=== PATIENT | female | born 1935 | race Caucasian/White ===

== ENCOUNTER 2019-11-07 18:45 | Inpatient (IN) | payer OTHER, SELFPAY ==
[~2019-11-07] VITALS: Ht 157.5 cm; Wt 67.1 kg
[2019-11-07 18:45] VITALS: BP_SYST 177
[2019-11-07] MEDS ORDERED: ACETAMINOPHEN 500 MG TABLET PO ONE (19:00)
[2019-11-07] MEDS ORDERED: hydrALAZINE HCL 20 MG/ML VIAL IVP ONE (19:00)
[2019-11-07] MEDS ORDERED: CLOP75TA32 PO (19:28)
[2019-11-07] MEDS ORDERED: DULO60CA41 PO (19:28)
[2019-11-07] MEDS ORDERED: METO-442 PO (19:28)
[2019-11-07] MEDS ORDERED: TRAZ-219 PO (19:28)
[2019-11-07] MEDS ORDERED: CAT.1 PO (19:28)
[2019-11-07] MEDS ORDERED: POTA20PA30 PO (19:28)
[2019-11-07] MEDS ORDERED: MULT-1100 PO (19:28)
[2019-11-07] MEDS ORDERED: INSU200I SQ (19:28)
[2019-11-07] MEDS ORDERED: HYDR-4038 PO (19:28)
[2019-11-07] MEDS ORDERED: SENN-278 PO (19:28)
[2019-11-07] MEDS ORDERED: LORA-258 PO (19:28)
[2019-11-07] MEDS ORDERED: METO-290 PO (19:28)
[2019-11-07] MEDS ORDERED: ASPI-1153 PO (19:28)
[2019-11-07] MEDS ORDERED: LIP10 PO (19:28)
[2019-11-07] MEDS ORDERED: GABA-531 PO (19:28)
[2019-11-07] MEDS ORDERED: MAGN200T9 PO (19:28)
[2019-11-07] MEDS ORDERED: AMLO5TAB4 PO (19:28)
[2019-11-07] MEDS ORDERED: OMEP20CA11 PO (19:28)
[2019-11-07] MEDS ORDERED: LIDO700A30 TP (19:28)
[2019-11-07 19:54] LABS: BASOPHILS # (AUTO) 0.1 K/uL (0.0-0.2); BASOPHILS % (AUTO) 0.2 % (0.0-2.0); EOSINOPHILS # (AUTO) 0.1 K/uL (0.0-0.4); EOSINOPHILS % (AUTO) 0.6 % (0.0-4.0); HEMATOCRIT 44.5 % (36-48); HEMOGLOBIN 14.9 g/dL (12.0-16.0); LYMPHOCYTES # (AUTO) 1.2 K/uL (1.0-5.5); LYMPHOCYTES % (AUTO) 5.3 % (20.5-51.5); MEAN CORPUSCULAR HEMOGLOBIN 31 pg (27-31); MEAN CORPUSCULAR HGB CONC 33 % (32-36); MEAN CORPUSCULAR VOLUME 92 fL (79.0-98.0); MONOCYTES # (AUTO) 1.3 K/uL (0.0-1.0); MONOCYTES % (AUTO) 5.9 % (1.7-9.3); NEUTROPHILS # (AUTO) 19.4 K/uL (1.8-7.7); PLATELET COUNT (AUTO) 215 K/uL (130-430); RED BLOOD CELL COUNT(AUTO) 4.86 MIL/uL (4.2-6.2); RED CELL DISTRIBUTION WIDTH 13.3 % (9.0-15.0)
[2019-11-07] MEDS ORDERED: LEVOFLOXACIN 500 MG/D5W 100 ML IV ONE (20:00)
[2019-11-07] MEDS ORDERED: ACETAMINOPHEN 500 MG TABLET ONE (20:06)
[2019-11-07 20:10] LABS: ANION GAP 7 (5-15); CALCIUM 8.7 mg/dL (8.4-11.0); CHLORIDE 96 mmol/L (98-107); CREATININE 0.69 mg/dL (0.55-1.30); GLUCOSE 209 mg/dL (70-99); SODIUM SERUM 134 mmol/L (136-145); UREA NITROGEN, BLOOD 12 mg/dL (8-21)
[2019-11-07 20:15] LABS: ALANINE AMINOTRANSFERASE 34 U/L (12-78); ALBUMIN 2.9 g/dL (3.4-4.8); ASPARTATE AMINOTRANSFERASE 19 U/L (10-37); LIPASE 211 U/L (73-393); TOTAL BILIRUBIN 0.4 mg/dL (0.0-1.0)
[2019-11-07 21:09] LABS: BILIRUBIN,URINE NEGATIVE (NEGATIVE); BLOOD, URINE NEGATIVE (NEGATIVE); COLOR,URINE YELLOW (YELLOW); GLUCOSE,URINE 2+ (NEGATIVE); KETONES,URINE NEGATIVE (NEGATIVE); LEUKOCYTE ESTERASE ,URINE NEGATIVE (NEGATIVE); NITRITE, URINE NEGATIVE (NEGATIVE); PROTEIN URINE 2+ (NEGATIVE); UROBILINOGEN,URINE 0.2 (0.2-1.0)
[2019-11-07] MEDS ORDERED: ACETAMINOPHEN 650 MG SUPP.RECT RC PRN (21:15)
[2019-11-07] MEDS ORDERED: POTASSIUM CHLORIDE 40 MEQ, LIDOCAINE JECT 2% PF 100 MG 50 MG in NS 250 ML IV ONE (21:15)
[2019-11-07 21:21] LABS: CLARITY/URINE SLIGHTLY HAZY (CLEAR)
[2019-11-07] MEDS ORDERED: LORazepam 2 MG/ML VIAL IVP PRN (21:30)
[2019-11-07] MEDS ORDERED: ONDANSETRON HCL 4 MG/2 ML VIAL IVP PRN (21:30)
[2019-11-07] MEDS ORDERED: MORPHINE 2 MG/ML INJ. SYRINGE IVP PRN (21:30)
[2019-11-07 21:57] LABS: BACTERIA,URINE MODERATE /HPF (None Seen); RBC,URINE 0-3 /HPF (0-3)
[2019-11-07] MEDS ORDERED: LIDOCAINE JECT 2% PF 100 MG/5ML SYRINGE ONE (22:22)
[2019-11-07] MEDS ORDERED: KCL 40 mEq in 100 mL (PREMIX) 100 ML IV ONE (22:25)
[2019-11-07 23:14] VITALS: BP_SYST 138
[2019-11-07] MEDS: KCL 20 mEq in D5NS 1000 mL 1,000 ML IV SCH (23:54)
[2019-11-07] MEDS ORDERED: KCL 20 mEq in D5NS 1000 mL 1,000 ML IV ONE (23:54)
[2019-11-08] VITALS: BP_SYST 143
[2019-11-08] MEDS ORDERED: DEXTROSE 50% JECT 50 ML DISP.SYRIN IVP PRN
[2019-11-08] MEDS ORDERED: GLUCOSE 15 GM GEL (in 37.5 GM TUBE) PO PRN
[2019-11-08] MEDS: INSULIN LISPRO SLIDING SCALE 100 UNITS/ML VIAL (humaLOG) SUBCUT PRN ×3 (00:11→20:50)
[2019-11-08 06:44] LABS: BASOPHILS % (AUTO) 0.2 % (0.0-2.0); EOSINOPHILS # (AUTO) 0.1 K/uL (0.0-0.4); EOSINOPHILS % (AUTO) 0.4 % (0.0-4.0); HEMATOCRIT 39.5 % (36-48); HEMOGLOBIN 13.1 g/dL (12.0-16.0); LYMPHOCYTES # (AUTO) 1.5 K/uL (1.0-5.5); MEAN CORPUSCULAR HEMOGLOBIN 31 pg (27-31); MEAN CORPUSCULAR HGB CONC 33 % (32-36); MEAN CORPUSCULAR VOLUME 92 fL (79.0-98.0); MONOCYTES # (AUTO) 1.2 K/uL (0.0-1.0); NEUTROPHILS # (AUTO) 14.2 K/uL (1.8-7.7); NEUTROPHILS % (AUTO) 83.4 % (40.0-70.0); PLATELET COUNT (AUTO) 184 K/uL (130-430); RED CELL DISTRIBUTION WIDTH 13.1 % (9.0-15.0); WHITE BLOOD COUNT (AUTO) 17.1 K/uL (4.8-10.8)
[2019-11-08 07:20] LABS: ALANINE AMINOTRANSFERASE 30 U/L (12-78); ALBUMIN 2.2 g/dL (3.4-4.8); ANION GAP 4 (5-15); ASPARTATE AMINOTRANSFERASE 16 U/L (10-37); CALCIUM 8.5 mg/dL (8.4-11.0); CHLORIDE 102 mmol/L (98-107); CREATININE 0.43 mg/dL (0.55-1.30); GLUCOSE 146 mg/dL (70-99); POTASSIUM 3.3 mmol/L (3.5-5.1); SODIUM SERUM 138 mmol/L (136-145); THYROID STIMULATING HORMONE 1.75 uIu/mL (0.36-3.74); TOTAL BILIRUBIN 0.5 mg/dL (0.0-1.0); UREA NITROGEN, BLOOD 11 mg/dL (8-21)
[2019-11-08] MEDS ORDERED: FAMOTIDINE PF 20 MG/2 ML VIAL IVP SCH (09:00)
[2019-11-08 09:20] VITALS: BP_SYST 167
[2019-11-08] MEDS: KCL 20 mEq in D5NS 1000 mL 1,000 ML IV SCH (09:20)
[2019-11-08] MEDS ORDERED: POTASSIUM CHLORIDE 40 MEQ, LIDOCAINE JECT 2% PF 100 MG 50 MG in NS 250 ML IV ONE (10:00)
[2019-11-08 12:40] VITALS: BP_SYST 173
[2019-11-08 16:40] VITALS: BP_SYST 173
[2019-11-08] MEDS ORDERED: SENNOSIDES/DOCUSATE SODIUM 1 TAB TABLET(SENOKOT-S) PO PRN (17:00)
[2019-11-08] MEDS ORDERED: LORazepam 1 MG TABLET PO SCH (17:00)
[2019-11-08] MEDS: hydrALAZINE HCL 25 MG TABLET PO SCH ×2 (18:20→23:59)
[2019-11-08 20:00] VITALS: BP_SYST 163
[2019-11-08] MEDS: GABAPENTIN 300 MG CAPSULE PO SCH (20:34)
[2019-11-08] MEDS: METOCLOPRAMIDE HCL 10 MG TABLET PO SCH (20:34)
[2019-11-08] MEDS: METOPROLOL TARTRATE 50 MG TABLET PO SCH (20:36)
[2019-11-08] MEDS: MAGNESIUM OXIDE 400 MG TABLET PO SCH (20:36)
[2019-11-08] MEDS: traZODone HCL 50 MG TABLET (DESYREL) PO SCH (20:36)
[2019-11-08] MEDS: ATORVASTATIN 10 MG TABLET PO SCH (20:36)
[2019-11-08] MEDS: DULoxetine HCL 30 MG CAPSULE.DR (CYMBALTA) PO SCH (20:36)
[2019-11-08] MEDS: LEVOFLOXACIN 250 MG/D5W 50 ML IV SCH (20:49)
[2019-11-08 23:43] VITALS: BP_SYST 165
[2019-11-09] MEDS: KCL 20 mEq in D5NS 1000 mL 1,000 ML IV SCH ×3 (00:04→18:23)
[2019-11-09] MEDS: hydrALAZINE HCL 25 MG TABLET PO SCH ×4 (05:31→23:43)
[2019-11-09 06:51] LABS: BASOPHILS # (AUTO) 0.1 K/uL (0.0-0.2); BASOPHILS % (AUTO) 0.5 % (0.0-2.0); EOSINOPHILS # (AUTO) 0.1 K/uL (0.0-0.4); EOSINOPHILS % (AUTO) 0.8 % (0.0-4.0); HEMATOCRIT 39.4 % (36-48); HEMOGLOBIN 12.9 g/dL (12.0-16.0); LYMPHOCYTES # (AUTO) 1.5 K/uL (1.0-5.5); LYMPHOCYTES % (AUTO) 9.7 % (20.5-51.5); MEAN CORPUSCULAR HEMOGLOBIN 30 pg (27-31); MEAN CORPUSCULAR HGB CONC 33 % (32-36); MEAN CORPUSCULAR VOLUME 92 fL (79.0-98.0); MONOCYTES % (AUTO) 6.7 % (1.7-9.3); NEUTROPHILS # (AUTO) 12.6 K/uL (1.8-7.7); NEUTROPHILS % (AUTO) 82.3 % (40.0-70.0); PLATELET COUNT (AUTO) 218 K/uL (130-430); RED BLOOD CELL COUNT(AUTO) 4.26 MIL/uL (4.2-6.2); RED CELL DISTRIBUTION WIDTH 13.1 % (9.0-15.0); WHITE BLOOD COUNT (AUTO) 15.3 K/uL (4.8-10.8)
[2019-11-09 06:58] LABS: ALANINE AMINOTRANSFERASE 23 U/L (12-78); ALBUMIN 2.2 g/dL (3.4-4.8); ANION GAP 6 (5-15); ASPARTATE AMINOTRANSFERASE 14 U/L (10-37); CALCIUM 8.3 mg/dL (8.4-11.0); CHLORIDE 103 mmol/L (98-107); CREATININE 0.44 mg/dL (0.55-1.30); GLUCOSE 166 mg/dL (70-99); POTASSIUM 3.4 mmol/L (3.5-5.1); SODIUM SERUM 138 mmol/L (136-145); TOTAL BILIRUBIN 0.5 mg/dL (0.0-1.0); UREA NITROGEN, BLOOD 9 mg/dL (8-21)
[2019-11-09 08:00] VITALS: BP_SYST 171
[2019-11-09] MEDS: MULTIVITAMINS TAB 1 TABLET PO SCH (08:12)
[2019-11-09] MEDS: GABAPENTIN 300 MG CAPSULE PO SCH ×3 (08:12→21:08)
[2019-11-09] MEDS: CLOPIDOGREL BISULFATE 75 MG TABLET PO SCH (08:12)
[2019-11-09] MEDS: ASPIRIN 81 MG TABLET(ECOTRIN) PO SCH (08:13)
[2019-11-09] MEDS: MAGNESIUM OXIDE 400 MG TABLET PO SCH ×2 (08:13→21:10)
[2019-11-09] MEDS: PANTOPRAZOLE SODIUM 40 MG TAB PO SCH (08:13)
[2019-11-09] MEDS: METOCLOPRAMIDE HCL 10 MG TABLET PO SCH ×3 (08:13→21:08)
[2019-11-09] MEDS: METOPROLOL TARTRATE 50 MG TABLET PO SCH ×2 (08:13→21:09)
[2019-11-09] MEDS: amLODIPine BESYLATE 5 MG TABLET PO SCH (08:14)
[2019-11-09] MEDS: cloNIDine HCL 0.1 MG TABLET PO SCH ×2 (08:14→17:15)
[2019-11-09] MEDS ORDERED: POTASSIUM CHLORIDE 10 MEQ TAB.PRT.SR PO ONE (08:30)
[2019-11-09] MEDS: LIDOCAINE PATCH 5% 1 EA TP SCH (12:25)
[2019-11-09 12:37] VITALS: BP_SYST 145
[2019-11-09 16:30] VITALS: BP_SYST 150
[2019-11-09] MEDS: INSULIN LISPRO SLIDING SCALE 100 UNITS/ML VIAL (humaLOG) SUBCUT PRN ×2 (17:23→20:41)
[2019-11-09 20:00] VITALS: BP_SYST 164
[2019-11-09] MEDS: LEVOFLOXACIN 250 MG/D5W 50 ML IV SCH (21:05)
[2019-11-09] MEDS: DULoxetine HCL 30 MG CAPSULE.DR (CYMBALTA) PO SCH (21:06)
[2019-11-09] MEDS: ATORVASTATIN 10 MG TABLET PO SCH (21:09)
[2019-11-09] MEDS: traZODone HCL 50 MG TABLET (DESYREL) PO SCH (21:14)
[2019-11-09] MEDS: ENALAPRILAT DIHYDRATE 1.25 MG/ML VIAL IVP PRN (22:28)
[2019-11-10] VITALS: BP_SYST 173
[2019-11-10] MEDS: hydrALAZINE HCL 25 MG TABLET PO SCH ×4 (05:20→22:39)
[2019-11-10] MEDS: cloNIDine HCL 0.1 MG TABLET PO SCH (05:20)
[2019-11-10] MEDS: INSULIN LISPRO SLIDING SCALE 100 UNITS/ML VIAL (humaLOG) SUBCUT PRN ×2 (05:56→11:23)
[2019-11-10 07:34] LABS: ANION GAP 5 (5-15); CALCIUM 8.5 mg/dL (8.4-11.0); CHLORIDE 101 mmol/L (98-107); CREATININE 0.44 mg/dL (0.55-1.30); GLUCOSE 167 mg/dL (70-99); POTASSIUM 3.6 mmol/L (3.5-5.1); SODIUM SERUM 135 mmol/L (136-145); UREA NITROGEN, BLOOD 12 mg/dL (8-21)
[2019-11-10 07:40] VITALS: BP_SYST 183
[2019-11-10] MEDS: METOCLOPRAMIDE HCL 10 MG TABLET PO SCH ×3 (08:25→22:41)
[2019-11-10] MEDS: amLODIPine BESYLATE 5 MG TABLET PO SCH ×2 (08:25→22:41)
[2019-11-10] MEDS: MULTIVITAMINS TAB 1 TABLET PO SCH (08:25)
[2019-11-10] MEDS: CLOPIDOGREL BISULFATE 75 MG TABLET PO SCH (08:25)
[2019-11-10] MEDS: PANTOPRAZOLE SODIUM 40 MG TAB PO SCH (08:25)
[2019-11-10] MEDS: MAGNESIUM OXIDE 400 MG TABLET PO SCH ×2 (08:26→22:40)
[2019-11-10] MEDS: ASPIRIN 81 MG TABLET(ECOTRIN) PO SCH (08:26)
[2019-11-10] MEDS: METOPROLOL TARTRATE 50 MG TABLET PO SCH ×2 (08:26→22:40)
[2019-11-10] MEDS: GABAPENTIN 300 MG CAPSULE PO SCH ×3 (08:26→22:39)
[2019-11-10] MEDS: ENALAPRILAT DIHYDRATE 1.25 MG/ML VIAL IVP PRN (08:27)
[2019-11-10] MEDS: LIDOCAINE PATCH 5% 1 EA TP SCH (08:27)
[2019-11-10 12:16] VITALS: BP_SYST 136
[2019-11-10 16:11] VITALS: BP_SYST 168
[2019-11-10] MEDS ORDERED: MILK OF MAGNESIA 30 ML UDC PO ONE ×2 (16:15→21:00)
[2019-11-10 20:00] VITALS: BP_SYST 150
[2019-11-10] MEDS: DOCUSATE SODIUM 250 MG CAPSULE PO SCH (21:00)
[2019-11-10] MEDS: ATORVASTATIN 10 MG TABLET PO SCH (22:38)
[2019-11-10] MEDS: DULoxetine HCL 30 MG CAPSULE.DR (CYMBALTA) PO SCH (22:39)
[2019-11-10] MEDS: LEVOFLOXACIN 250 MG/D5W 50 ML IV SCH (22:52)
[2019-11-10] MEDS: traZODone HCL 50 MG TABLET (DESYREL) PO SCH (23:03)
[2019-11-11 00:08] VITALS: BP_SYST 153
[2019-11-11] MEDS: hydrALAZINE HCL 25 MG TABLET PO SCH ×3 (06:12→21:21)
[2019-11-11 09:00] VITALS: BP_SYST 131
[2019-11-11] MEDS: MAGNESIUM OXIDE 400 MG TABLET PO SCH ×2 (09:39→20:21)
[2019-11-11] MEDS: LIDOCAINE PATCH 5% 1 EA TP SCH (09:39)
[2019-11-11] MEDS: amLODIPine BESYLATE 5 MG TABLET PO SCH ×2 (09:40→20:21)
[2019-11-11] MEDS: GABAPENTIN 300 MG CAPSULE PO SCH ×3 (09:40→20:20)
[2019-11-11] MEDS: ASPIRIN 81 MG TABLET(ECOTRIN) PO SCH (09:41)
[2019-11-11] MEDS: METOCLOPRAMIDE HCL 10 MG TABLET PO SCH ×3 (09:41→20:21)
[2019-11-11] MEDS: MULTIVITAMINS TAB 1 TABLET PO SCH (09:42)
[2019-11-11] MEDS: METOPROLOL TARTRATE 50 MG TABLET PO SCH ×2 (09:42→20:22)
[2019-11-11] MEDS: CLOPIDOGREL BISULFATE 75 MG TABLET PO SCH (09:43)
[2019-11-11] MEDS: PANTOPRAZOLE SODIUM 40 MG TAB PO SCH (09:43)
[2019-11-11] MEDS: DOCUSATE SODIUM 250 MG CAPSULE PO SCH ×2 (09:48→20:21)
[2019-11-11 12:38] VITALS: BP_SYST 128
[2019-11-11 17:10] VITALS: BP_SYST 146
[2019-11-11 20:00] VITALS: BP_SYST 161
[2019-11-11] MEDS: ATORVASTATIN 10 MG TABLET PO SCH (20:22)
[2019-11-11] MEDS: traZODone HCL 50 MG TABLET (DESYREL) PO SCH (20:22)
[2019-11-11] MEDS: DULoxetine HCL 30 MG CAPSULE.DR (CYMBALTA) PO SCH (20:22)
[2019-11-11] MEDS: LEVOFLOXACIN 250 MG/D5W 50 ML IV SCH (21:16)
[2019-11-12 00:44] VITALS: BP_SYST 119
[2019-11-12] MEDS: hydrALAZINE HCL 25 MG TABLET PO SCH ×3 (05:36→22:07)
[2019-11-12] MEDS: GABAPENTIN 300 MG CAPSULE PO SCH ×3 (09:03→22:02)
[2019-11-12] MEDS: MAGNESIUM OXIDE 400 MG TABLET PO SCH ×2 (09:03→22:02)
[2019-11-12] MEDS: PANTOPRAZOLE SODIUM 40 MG TAB PO SCH (09:04)
[2019-11-12] MEDS: MULTIVITAMINS TAB 1 TABLET PO SCH (09:04)
[2019-11-12] MEDS: METOCLOPRAMIDE HCL 10 MG TABLET PO SCH ×3 (09:04→22:03)
[2019-11-12] MEDS: CLOPIDOGREL BISULFATE 75 MG TABLET PO SCH (09:04)
[2019-11-12] MEDS: ASPIRIN 81 MG TABLET(ECOTRIN) PO SCH (09:05)
[2019-11-12] MEDS: LIDOCAINE PATCH 5% 1 EA TP SCH (09:05)
[2019-11-12] MEDS: amLODIPine BESYLATE 5 MG TABLET PO SCH ×2 (09:05→22:05)
[2019-11-12] MEDS: METOPROLOL TARTRATE 50 MG TABLET PO SCH ×2 (09:05→22:04)
[2019-11-12] MEDS: DOCUSATE SODIUM 250 MG CAPSULE PO SCH ×2 (09:06→22:01)
[2019-11-12] MEDS ORDERED: HYDROcodone/ACETAMIN 5-325 MG TAB (NORCO/ VICODIN) PO ONE (09:15)
[2019-11-12] MEDS ORDERED: HYDROcodone/ACETAMIN 5-325 MG TAB (NORCO/ VICODIN) PO PRN (09:15)
[2019-11-12] MEDS: POTASSIUM CHLORIDE 10 MEQ in NACL 0.9% 1,000 ML IV SCH ×3 (09:44→22:08)
[2019-11-12] MEDS ORDERED: BALSAM PERU/CASTOR OIL 60 GM OINT...G. TP SCH (10:00)
[2019-11-12 10:09] LABS: BASOPHILS # (AUTO) 0.1 K/uL (0.0-0.2); BASOPHILS % (AUTO) 0.5 % (0.0-2.0); EOSINOPHILS # (AUTO) 0.1 K/uL (0.0-0.4); EOSINOPHILS % (AUTO) 0.6 % (0.0-4.0); HEMATOCRIT 36.3 % (36-48); LYMPHOCYTES # (AUTO) 1.1 K/uL (1.0-5.5); LYMPHOCYTES % (AUTO) 8.3 % (20.5-51.5); MEAN CORPUSCULAR HEMOGLOBIN 30 pg (27-31); MEAN CORPUSCULAR HGB CONC 33 % (32-36); MEAN CORPUSCULAR VOLUME 91 fL (79.0-98.0); MONOCYTES % (AUTO) 7.1 % (1.7-9.3); NEUTROPHILS # (AUTO) 11.3 K/uL (1.8-7.7); NEUTROPHILS % (AUTO) 83.5 % (40.0-70.0); PLATELET COUNT (AUTO) 297 K/uL (130-430); RED CELL DISTRIBUTION WIDTH 12.9 % (9.0-15.0); WHITE BLOOD COUNT (AUTO) 13.5 K/uL (4.8-10.8)
[2019-11-12 10:28] LABS: ALANINE AMINOTRANSFERASE 20 U/L (12-78); ANION GAP 3 (5-15); ASPARTATE AMINOTRANSFERASE 16 U/L (10-37); CALCIUM 8.3 mg/dL (8.4-11.0); CHLORIDE 101 mmol/L (98-107); CREATININE 0.62 mg/dL (0.55-1.30); GLUCOSE 235 mg/dL (70-99); POTASSIUM 3.3 mmol/L (3.5-5.1); SODIUM SERUM 138 mmol/L (136-145); TOTAL BILIRUBIN 0.3 mg/dL (0.0-1.0); UREA NITROGEN, BLOOD 15 mg/dL (8-21)
[2019-11-12] MEDS: INSULIN LISPRO SLIDING SCALE 100 UNITS/ML VIAL (humaLOG) SUBCUT PRN ×2 (11:29→22:14)
[2019-11-12 12:34] VITALS: BP_SYST 112
[2019-11-12] MEDS ORDERED: POTASSIUM CHLORIDE 20 MEQ/PKT PACKET PO ONE (15:00)
[2019-11-12 17:12] VITALS: BP_SYST 131
[2019-11-12 19:00] VITALS: BP_SYST 148
[2019-11-12 20:00] VITALS: BP_SYST 148
[2019-11-12] MEDS: LEVOFLOXACIN 250 MG/D5W 50 ML IV SCH (22:00)
[2019-11-12] MEDS: traZODone HCL 50 MG TABLET (DESYREL) PO SCH (22:02)
[2019-11-12] MEDS: ATORVASTATIN 10 MG TABLET PO SCH (22:02)
[2019-11-12] MEDS: DULoxetine HCL 30 MG CAPSULE.DR (CYMBALTA) PO SCH (22:02)
[2019-11-13 00:21] VITALS: BP_SYST 142
[2019-11-13 06:00] VITALS: BP_SYST 151
[2019-11-13 06:44] LABS: ANION GAP 2 (5-15); CALCIUM 8.3 mg/dL (8.4-11.0); CHLORIDE 103 mmol/L (98-107); CREATININE 0.38 mg/dL (0.55-1.30); GLUCOSE 111 mg/dL (70-99); POTASSIUM 3.3 mmol/L (3.5-5.1); SODIUM SERUM 140 mmol/L (136-145); UREA NITROGEN, BLOOD 11 mg/dL (8-21)
[2019-11-13 08:00] VITALS: BP_SYST 124
[2019-11-13] MEDS ORDERED: POTASSIUM CHLORIDE 20 MEQ/PKT PACKET PO ONE (08:15)
[2019-11-13] MEDS: PANTOPRAZOLE SODIUM 40 MG TAB PO SCH ×2 (09:00→09:52)
[2019-11-13] MEDS: GABAPENTIN 300 MG CAPSULE PO SCH ×4 (09:00→22:33)
[2019-11-13] MEDS: MAGNESIUM OXIDE 400 MG TABLET PO SCH ×3 (09:00→22:29)
[2019-11-13] MEDS: amLODIPine BESYLATE 5 MG TABLET PO SCH ×3 (09:00→22:25)
[2019-11-13] MEDS: MULTIVITAMINS TAB 1 TABLET PO SCH ×2 (09:00→09:50)
[2019-11-13] MEDS: METOCLOPRAMIDE HCL 10 MG TABLET PO SCH ×4 (09:00→22:29)
[2019-11-13] MEDS: LIDOCAINE PATCH 5% 1 EA TP SCH ×2 (09:00→09:54)
[2019-11-13] MEDS: METOPROLOL TARTRATE 50 MG TABLET PO SCH ×3 (09:00→22:25)
[2019-11-13] MEDS: ASPIRIN 81 MG TABLET(ECOTRIN) PO SCH ×2 (09:00→09:51)
[2019-11-13] MEDS: DOCUSATE SODIUM 250 MG CAPSULE PO SCH ×3 (09:00→22:29)
[2019-11-13] MEDS: CLOPIDOGREL BISULFATE 75 MG TABLET PO SCH ×2 (09:00→09:52)
[2019-11-13 12:15] VITALS: BP_SYST 140
[2019-11-13] MEDS: hydrALAZINE HCL 25 MG TABLET PO SCH ×2 (14:00→22:34)
[2019-11-13 16:50] VITALS: BP_SYST 134
[2019-11-13 22:17] VITALS: BP_SYST 194
[2019-11-13] MEDS: traZODone HCL 50 MG TABLET (DESYREL) PO SCH (22:29)
[2019-11-13] MEDS: ATORVASTATIN 10 MG TABLET PO SCH (22:29)
[2019-11-13] MEDS: LEVOFLOXACIN 250 MG/D5W 50 ML IV SCH (22:29)
[2019-11-13] MEDS: DULoxetine HCL 30 MG CAPSULE.DR (CYMBALTA) PO SCH (22:29)
[2019-11-14 00:03] VITALS: BP_SYST 158
[2019-11-14 05:39] VITALS: BP_SYST 185
[2019-11-14] MEDS: hydrALAZINE HCL 25 MG TABLET PO SCH ×2 (05:42→14:09)
[2019-11-14] MEDS: POTASSIUM CHLORIDE 10 MEQ in NACL 0.9% 1,000 ML IV SCH ×2 (05:45→11:49)
[2019-11-14 06:51] LABS: ANION GAP 7 (5-15); CALCIUM 8.3 mg/dL (8.4-11.0); CHLORIDE 98 mmol/L (98-107); CREATININE 0.31 mg/dL (0.55-1.30); GLUCOSE 146 mg/dL (70-99); SODIUM SERUM 135 mmol/L (136-145); UREA NITROGEN, BLOOD 8 mg/dL (8-21)
[2019-11-14 06:58] LABS: POTASSIUM 2.9 mmol/L (3.5-5.1)
[2019-11-14] MEDS ORDERED: POTASSIUM CHLORIDE 40 MEQ, MAGNESIUM SULFATE 2 GM in 0.45% NS 250 ML IV ONE (07:30)
[2019-11-14 08:06] VITALS: BP_SYST 166
[2019-11-14] MEDS: LIDOCAINE PATCH 5% 1 EA TP SCH (08:16)
[2019-11-14] MEDS: DOCUSATE SODIUM 250 MG CAPSULE PO SCH (08:16)
[2019-11-14] MEDS: METOCLOPRAMIDE HCL 10 MG TABLET PO SCH ×2 (08:16→14:08)
[2019-11-14] MEDS: CLOPIDOGREL BISULFATE 75 MG TABLET PO SCH (08:17)
[2019-11-14] MEDS: PANTOPRAZOLE SODIUM 40 MG TAB PO SCH (08:17)
[2019-11-14] MEDS: GABAPENTIN 300 MG CAPSULE PO SCH ×2 (08:17→14:09)
[2019-11-14] MEDS: MULTIVITAMINS TAB 1 TABLET PO SCH (08:17)
[2019-11-14] MEDS: ASPIRIN 81 MG TABLET(ECOTRIN) PO SCH (08:17)
[2019-11-14] MEDS: MAGNESIUM OXIDE 400 MG TABLET PO SCH (08:17)
[2019-11-14] MEDS: METOPROLOL TARTRATE 50 MG TABLET PO SCH (08:17)
[2019-11-14] MEDS ORDERED: LOSARTAN POTASSIUM 50 MG TABLET (COZAAR) PO SCH (09:00)
[2019-11-14 13:07] VITALS: BP_SYST 176
[2019-11-14 13:31] VITALS: BP_SYST 166
[2019-11-14 16:00] VITALS: BP_SYST 202
[2019-11-14] MEDS: cloNIDine HCL 0.1 MG TABLET PO SCH (16:10)
== END 2019-11-14 17:00 | DRG 177 ==
LOC: SED 18:45 → EEVIPCON 18:45 → STU 20:57 → SMU 11-12 19:09
PROVIDERS: ADMIT Internal Medicine; ATTEND Internal Medicine
DX: J69.0 Pneumonitis due to inhalation of food and vomit (principal); E43 Unspecified severe protein-calorie malnutrition; R19.00 Intra-abdominal and pelvic swelling, mass and lump, unspecified site; I10 Essential (primary) hypertension; E78.5 Hyperlipidemia, unspecified; F32.9 Major depressive disorder, single episode, unspecified; E11.40 Type 2 diabetes mellitus with diabetic neuropathy, unspecified; K56.41 Fecal impaction; Z20.828 Contact with and (suspected) exposure to other viral communicable diseases; E87.6 Hypokalemia; M17.0 Bilateral primary osteoarthritis of knee; Z66 Do not resuscitate; M47.816 Spondylosis without myelopathy or radiculopathy, lumbar region; K21.9 Gastro-esophageal reflux disease without esophagitis; Z88.0 Allergy status to penicillin; Z88.1 Allergy status to other antibiotic agents; Z91.041 Radiographic dye allergy status; Z79.899 Other long term (current) drug therapy; Z79.82 Long term (current) use of aspirin; Z85.43 Personal history of malignant neoplasm of ovary; Z86.73 Personal history of transient ischemic attack (TIA), and cerebral infarction without residual deficits; Z68.27 Body mass index [BMI] 27.0-27.9, adult
CPT/HCPCS: 36415; 71045; 74018; 80048; 80053; 81000-TC; 82962; 83605; 83690-TC; 83735-TC; 83880; 84443-TC; 85025; 86710; 87040-TC; 87081; 87086; 92610-GN; 93005; 96365; 96375; 97110-GP; 97112-GP; 97530-GP; 99285; G0378; J0360; J1956; J2270; J2405; J3475; J3480; J3490; J7030; J7050; J8597; U0002

== ENCOUNTER 2019-11-15 14:55 | Emergency (ER) | payer OTHER, SELFPAY ==
[~2019-11-15] VITALS: Ht 162.6 cm; Wt 108.9 kg
[~2019-11-15 14:55] MED LIST: AMLO5TAB4 PO; ASPI-1153 PO; CAT.1 PO; CLOP75TA32 PO; DULO60CA41 PO; GABA-531 PO; HYDR-4038 PO; INSU200I SQ; LIDO700A30 TP; LIP10 PO; LORA-258 PO; MAGN200T9 PO; METO-290 PO; METO-442 PO; MULT-1100 PO; OMEP20CA11 PO; POTA20PA30 PO; SENN-278 PO; TRAZ-219 PO
[2019-11-15 15:00] VITALS: BP_SYST 184
[2019-11-15 15:26] VITALS: BP_SYST 184
[2019-11-15 15:45] LABS: BASOPHILS # (AUTO) 0.1 K/uL (0.0-0.2); BASOPHILS % (AUTO) 0.5 % (0.0-2.0); EOSINOPHILS # (AUTO) 0.1 K/uL (0.0-0.4); EOSINOPHILS % (AUTO) 0.7 % (0.0-4.0); HEMATOCRIT 38.1 % (36-48); HEMOGLOBIN 12.7 g/dL (12.0-16.0); LYMPHOCYTES # (AUTO) 1.6 K/uL (1.0-5.5); LYMPHOCYTES % (AUTO) 11.5 % (20.5-51.5); MEAN CORPUSCULAR HEMOGLOBIN 30 pg (27-31); MEAN CORPUSCULAR HGB CONC 33 % (32-36); MEAN CORPUSCULAR VOLUME 90 fL (79.0-98.0); MONOCYTES % (AUTO) 6.9 % (1.7-9.3); NEUTROPHILS # (AUTO) 11.2 K/uL (1.8-7.7); NEUTROPHILS % (AUTO) 80.4 % (40.0-70.0); PLATELET COUNT (AUTO) 368 K/uL (130-430); RED BLOOD CELL COUNT(AUTO) 4.23 MIL/uL (4.2-6.2); RED CELL DISTRIBUTION WIDTH 13.1 % (9.0-15.0)
[2019-11-15] MEDS ORDERED: NACL 0.9% 1,000 ML IV ONE (15:45)
[2019-11-15 15:49] LABS: PROTHROMBIN TIME 10.4 SECS (9.5-12.5)
[2019-11-15 16:18] LABS: ANION GAP 9 (5-15); CALCIUM 8.9 mg/dL (8.4-11.0); CHLORIDE 102 mmol/L (98-107); CREATININE 0.52 mg/dL (0.55-1.30); GLUCOSE 107 mg/dL (70-99); POTASSIUM 3.3 mmol/L (3.5-5.1); SODIUM SERUM 141 mmol/L (136-145); UREA NITROGEN, BLOOD 10 mg/dL (8-21)
[2019-11-15 16:24] LABS: ALANINE AMINOTRANSFERASE 21 U/L (12-78); ALBUMIN 2.4 g/dL (3.4-4.8); ASPARTATE AMINOTRANSFERASE 19 U/L (10-37); TOTAL BILIRUBIN 0.3 mg/dL (0.0-1.0)
[2019-11-15 17:15] LABS: BILIRUBIN,URINE 1+ (NEGATIVE); BLOOD, URINE 3+ (NEGATIVE); CLARITY/URINE CLOUDY (CLEAR); COLOR,URINE YELLOW (YELLOW); GLUCOSE,URINE NEGATIVE (NEGATIVE); KETONES,URINE 3+ (NEGATIVE); LEUKOCYTE ESTERASE ,URINE 2+ (NEGATIVE); NITRITE, URINE POSITIVE (NEGATIVE); PROTEIN URINE 2+ (NEGATIVE); UROBILINOGEN,URINE 0.2 (0.2-1.0)
[2019-11-15 17:26] LABS: BACTERIA,URINE MODERATE /HPF (None Seen); RBC,URINE >100 /HPF (0-3); WBC,URINE 50-80 /HPF (0-3)
[2019-11-15 17:27] LABS: MUCUS,URINE 2+ /LPF (None Seen)
[2019-11-15 17:28] LABS: URINE AMORPHOUS URATE 3+ /HPF (None Seen)
[2019-11-15] MEDS ORDERED: LEVOFLOXACIN 500 MG/D5W 100 ML IV ONE (17:30)
[2019-11-15] MEDS ORDERED: hydrALAZINE HCL 20 MG/ML VIAL IVP ONE (18:45)
[2019-11-15 20:37] VITALS: BP_SYST 148
== END 2019-11-15 20:37 | disposition home or self-care (01) ==
LOC: SED 14:55 → EEVIPCON 14:55 → SED 20:37
DX: N39.0 Urinary tract infection, site not specified (principal); E87.5 Hyperkalemia; R41.82 Altered mental status, unspecified; R62.7 Adult failure to thrive; E78.5 Hyperlipidemia, unspecified; E07.9 Disorder of thyroid, unspecified; E11.9 Type 2 diabetes mellitus without complications; I10 Essential (primary) hypertension; Z86.73 Personal history of transient ischemic attack (TIA), and cerebral infarction without residual deficits; Z79.899 Other long term (current) drug therapy; Z79.82 Long term (current) use of aspirin; Z79.4 Long term (current) use of insulin; Z88.0 Allergy status to penicillin; Z88.6 Allergy status to analgesic agent; Z88.8 Allergy status to other drugs, medicaments and biological substances
CPT/HCPCS: 36415; 70450; 71045; 80053; 81000; 83605; 83880; 84484; 85025; 85610; 85730; 87040; 87086; 93005; 96361; 96365; 96375; 99285; J0360; J1956; J7030; 87186-TC